=== PATIENT | female | born 1990 | race Caucasian/White ===

== ENCOUNTER 2022-11-05 12:19 | Emergency (ER) | payer BC ==
[2022-11-05 12:58] LABS: BASOPHILS ABSOLUTE AUTO 0.02 K/mm3 (0.01-0.08); BASOPHILS PERCENT AUTO 0.1 % (0.1-1.2); EOSINOPHILS ABSOLUTE AUTO 0.02 K/mm3 (0.04-0.36); EOSINOPHILS PERCENT AUTO 0.1 (0.7-5.8); HEMATOCRIT 33.6 % (34.1-44.9); HEMOGLOBIN 11.2 gm/dl (11.2-15.7); IMMATURE GRAN ABSOLUTE AUTO 0.02 K/mm3 (0.00-0.10); IMMATURE GRAN PERCENT AUTO 0.1 % (<=1.0); LYMPHOCYTES ABSOLUTE AUTO 1.72 K/mm3 (1.18-3.74); LYMPHOCYTES PERCENT AUTO 10.6 % (19.3-51.7); MEAN CORPUSCULAR HEMOGLOBIN 29.4 pg (25.6-32.2); MEAN CORPUSCULAR HGB CONC 33.3 g/dl (32.2-35.5); MEAN CORPUSCULAR VOLUME 88.2 fl (79.4-94.8); MEAN PLATELET VOLUME 9.5 fl (9.4-12.3); MONOCYTES ABSOLUTE AUTO 0.58 K/mm3 (0.24-0.36); MONOCYTES PERCENT AUTO 3.6 % (4.7-12.5); NEUTROPHILS ABSOLUTE AUTO 13.84 K/mm3 (1.56-6.13); NEUTROPHILS PERCENT AUTO 85.5 % (34.0-71.1); PLATELET COUNT,PLT 292 K/mm3 (182-369); RED BLOOD CELL COUNT 3.81 M/mm3 (3.98-5.22)
[2022-11-05 13:08] LABS: INR 1.02; PROTHROMBIN TIME 10.9 SECONDS (9.7-12.0)
[2022-11-05 13:10] LABS: PTT,PARTIAL THROMBOPLSTIN TIME 22.4 SECONDS (21.7-31.4)
[2022-11-05 13:13] LABS: A/G RATIO 0.9 (1-2); ALBUMIN 2.9 g/dl (3.4-5.0); ANION GAP 13.9 (5-15); BILIRUBIN TOTAL 0.4 mg/dL (0.2-1.0); CALCIUM 8.4 mg/dL (8.5-10.1); CREATININE 0.5 mg/dL (0.55-1.02); EST CRCL DRUG DOSING (CG) 121.89 mL/min; PROTEIN TOTAL,TP 6.2 g/dl (6.4-8.2)
[2022-11-05 13:14] LABS: POTASSIUM,K 3.9 mEq/L (3.5-5.1)
[2022-11-05] MEDS ORDERED: Sodium Chloride 0.9% 1,000 ML IV STA (13:16)
[2022-11-05] MEDS ORDERED: Misoprostol 200 MCG Tab BUCCAL ONE (13:19)
== END 2022-11-05 19:10 | disposition home or self-care (01) ==
LOC: JD.ED 12:19
DX: O03.9 Complete or unspecified spontaneous abortion without complication (principal)
CPT/HCPCS: 36415; 36430; 80053; 85025; 85610; 85730; 86850; 86900; 86901; 86922; 96360; 96361; 99284; A9270; J7030; P9016